=== PATIENT | female | born 1970 | race Caucasian/White ===

== ENCOUNTER 2017-05-14 15:36 | Emergency (ER) | payer OTHER ==
[2017-05-14 16:24] LABS: % BASOPHILS 0.7 % (0.0-2.0); % LYMPHOCYTES 25.5 % (20.0-50.0); % NEUTROPHILS 65.8 % (40.0-80.0); HEMATOCRIT 43.4 % (41.0-60); HEMOGLOBIN 14.4 gm/dL (12-16); MEAN CORPUSCULAR HEMOGLOBIN 27.9 pg (27.0-31.0); MEAN CORPUSCULAR HGB CONC 33.2 pg (28.0-36.0); MEAN PLATELET VOLUME 7.8 fl; NEUTROPHILE ABSOLUTE 6.4 Th/cmm (1.8-8.0); PLATELET COUNT 366 Th/cmm (150-400); RED BLOOD COUNT 5.17 Mil/cmm (3.80-5.10); RED CELL DISTRIBUTION WIDTH 13.8 % (11.5-20.0); WHITE BLOOD COUNT 9.8 Th/cmm (4.8-10.8)
[2017-05-14 16:40] LABS: ANION GAP 9.7 (7.0-16.0); BUN - UREA NITROGEN 11 mg/dL (7-25); BUN/CREATININE RATIO 18.3; CALCIUM SERUM 9.3 mg/dL (8.6-10.3); CARBON DIOXIDE 24.8 mEq/L (21.0-31.0); CHLORIDE 104 mEq/L (98-107); CREATININE - SERUM 0.6 mg/dL (0.6-1.2); GLUCOSE 101 mg/dL (70-105); POTASSIUM SERUM 3.5 mEq/L (3.5-5.1); SODIUM SERUM 135 mEq/L (136-145)
[2017-05-14 17:02] LABS: INR 0.93 (0.5-1.4); PROTHROMBIN TIME (TEST) 9.7 SECONDS (9.5-11.5)
[2017-05-14] MEDS ORDERED: Acetaminophen 500 MG TAB ONE (17:09)
[2017-05-14] MEDS: Acetaminophen 500 MG TAB PO ONE (17:11)
[2017-05-14 18:34] LABS: URINE BILIRUBIN NEGATIVE (NEGATIVE); URINE BLOOD MODERATE (NEGATIVE); URINE GLUCOSE (UA) NEGATIVE (NEGATIVE); URINE KETONE NEGATIVE (NEGATIVE); URINE PROTEIN NEGATIVE (NEGATIVE); URINE UROBILINOGEN 0.2 E.U./dL (0.2 - 1.0)
[2017-05-14 18:37] LABS: URINE COLOR STRAW
[2017-05-14 18:40] LABS: URINE BACTERIA FEW /hpf (NONE SEEN); URINE EPITHELIAL CELLS FEW /lpf (FEW)
--- NOTE | 2017-05-14 21:56 | ER Physician Documentation ---
DATE OF SERVICE: TIME: 04:46 p.m. Sodium is 135, potassium is 3.5, chloride is 104, glucose is 101, and magnesium is 2.4. Only potassium is slightly low, we will give the patient some potassium by mouth. BUN and creatinine ratio is 18 and 0.3, calcium is 9.3, which is within normal limits. White count is normal 9.8, hemoglobin is 14.4, and hematocrit is 43.4. The patient did not have any hematuria. Urine culture is pending. The patient will get an x-ray of the cervical spine and chest x-ray and we are waiting for troponin level also and once this comes back and if they are normal, the patient will be going home. In all probability, it should be normal. Unless I find something abnormal, I will add it to the thing. One more thing I saw that on the right side of the face, there was a little reddish ecchymotic area of about an inch by a red alissa about a 1 inch x maybe 4 mm irregularly looking area, but there is no hematoma. She has some aches and strain that I saw on the right upper part of the chest, but there is no evidence of any hematoma or anything seen over there. This should conclude the dictation unless any fractures are seen in the x-ray, unless I find the troponin and BNP to be abnormal. JOB# [id number]
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
--- NOTE | 2017-05-15 09:47 | Diagnostic Imaging Report ---
Chest x-ray single view History: Pain The heart size is normal. No focal pulmonary parenchymal processes. No hilar or mediastinal abnormalities. Impression: No acute abnormalities
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
== END 2017-05-14 19:33 | disposition home or self-care (01) ==
LOC: ER 15:36
DX: M25.561 Pain in right knee (principal); R07.89 Other chest pain; Z90.49 Acquired absence of other specified parts of digestive tract
CPT/HCPCS: 99285; 96374; 93005; 71010; 72040; 84484; 83880; 36415; 85025; 85610; 87086; 81001; 83735; 80048; J1885; Z7610